=== PATIENT | female | born 1950 | race Caucasian/White ===

== ENCOUNTER 2023-01-17 15:48 | Inpatient (IN) | payer MEDICARE, OTHER ==
[~2023-01-17] VITALS: Ht 175.3 cm; Wt 66.7 kg
[2023-01-17] MEDS ORDERED: EYEL1MED TP (16:24)
[2023-01-17] MEDS ORDERED: MAGN400O6 PO (16:24)
[2023-01-17] MEDS ORDERED: ONDA4TAB11 SL (16:24)
[2023-01-17] MEDS ORDERED: CHOL400T32 PO (16:24)
[2023-01-17] MEDS ORDERED: ASPI81TA31 PO (16:24)
[2023-01-17] MEDS ORDERED: NALO4SPR NS (16:24)
[2023-01-17] MEDS ORDERED: ACET-2154 PO (16:24)
[2023-01-17] MEDS ORDERED: SENN1TAB59 PO (16:24)
[2023-01-17] MEDS ORDERED: L. A1TAB10 PO (16:24)
[2023-01-17] MEDS ORDERED: MORP15TA7 PO (16:24)
[2023-01-17 16:32] LABS: CARBON DIOXIDE 27 mmol/L (21-32); CHLORIDE 99 mmol/L (98-107); CREATININE 0.6 mg/dL (0.6-1.3); GLUCOSE 91 mg/dL (74-106); POTASSIUM 3.7 mmol/L (3.5-5.1); SODIUM SERUM 134 mmol/L (136-145); UREA NITROGEN, BLOOD 8 mg/dL (7-18)
[2023-01-17 16:46] LABS: ALANINE AMINOTRANSFERASE 17 U/L (14-59); ALBUMIN 3.7 g/dL (3.4-5.0); ALKALINE PHOSPHATASE 99 U/L (50-136); ASPARTATE AMINOTRANSFERASE 12 U/L (15-37); BILIRUBIN,DIRECT 0.1 mg/dL (0.0-0.2); BILIRUBIN,TOTAL 0.5 mg/dL (0.2-1.0); NT-PRO BNP 720 pg/mL (0-125); TOTAL PROTEIN, SERUM 6.8 g/dL (6.4-8.2)
[2023-01-17] MEDS ORDERED: HYDROCODONE/APAP 5-325MG TABLET PO PRN (21:00)
[2023-01-17] MEDS ORDERED: TEMAZEPAM 15 MG CAPSULE PO PRN (21:00)
[2023-01-17] MEDS ORDERED: hydrALAZINE HCL 25 MG TABLET PO PRN (21:00)
[2023-01-17] MEDS ORDERED: ONDANSETRON 4 MG/2 ML VIAL IV PRN (21:00)
[2023-01-17] MEDS ORDERED: MAGNESIUM HYDROXIDE 30 ML LIQUID UDC PO PRN (21:00)
[2023-01-17] MEDS ORDERED: IV 1/2NS 1000 ML 1,000 ML IV PRN (22:00)
[2023-01-17] MEDS ORDERED: LORAZEPAM 2 MG/1 ML VIAL IV PRN (22:15)
[2023-01-17] MEDS: DOCUSATE SODIUM 100 MG CAPSULE PO SCH (22:23)
[2023-01-17 23:08] VITALS: BP 137/62; TEMP 98.5; O2SAT 97
[2023-01-17] MEDS ORDERED: diphenhydrAMINE 25 MG CAP PO PRN (23:30)
[2023-01-18 04:50] VITALS: BP 131/52; TEMP 97.4; O2SAT 97
[2023-01-18] MEDS: PANTOPRAZOLE SODIUM 40 MG TABLET.DR PO SCH (06:28)
[2023-01-18 08:04] VITALS: BP 122/62; TEMP 98; O2SAT 98
[2023-01-18] MEDS: ASPIRIN EC 81 MG TABLET.DR PO SCH (08:39)
[2023-01-18] MEDS: CULTURELLE CAPSULE PO SCH (08:39)
[2023-01-18] MEDS: MORPHINE SULFATE SR 15 MG TABLET.SA PO PRN ×2 (08:43→17:12)
[2023-01-18] MEDS ORDERED: AMLODIPINE 5 MG TABLET PO SCH (09:00)
[2023-01-18 10:59] VITALS: BP 130/63; TEMP 98; O2SAT 98
[2023-01-18] MEDS ORDERED: DIPH-530 PO (11:49)
[2023-01-18] MEDS ORDERED: PROP15DR EACHEYE (11:49)
[2023-01-18] MEDS ORDERED: SENN8.6T19 PO (11:49)
[2023-01-18] MEDS ORDERED: LORA5SOL38 PO (11:49)
[2023-01-18] MEDS ORDERED: MAGN400C PO (11:49)
[2023-01-18] MEDS ORDERED: ONDA-104 PO (11:49)
[2023-01-18] MEDS ORDERED: MELO-105 PO (11:49)
[2023-01-18] MEDS ORDERED: FLUT16SP16 BNOSTRILS (11:49)
[2023-01-18] MEDS ORDERED: BISA10SU95 RC (11:49)
[2023-01-18] MEDS ORDERED: ASPI-495 PO (11:49)
[2023-01-18] MEDS ORDERED: UMEC1BLS IH (11:49)
[2023-01-18] MEDS: diphenhydrAMINE 25 MG/10 ML UDC PO PRN ×2 (14:20→23:01)
[2023-01-18 15:00] VITALS: BP 130/50; TEMP 97; O2SAT 98
[2023-01-18] MEDS ORDERED: METOCLOPRAMIDE HCL 5 MG TABLET PO PRN (16:15)
[2023-01-18] MEDS: LORATADINE 10 MG TABLET PO PRN (17:12)
[2023-01-18 20:10] VITALS: BP 127/56; TEMP 98.2; O2SAT 98
[2023-01-18] MEDS: DOCUSATE SODIUM 100 MG CAPSULE PO SCH ×2 (20:42→20:45)
[2023-01-19] MEDS: ACETAMINOPHEN 325 MG TABLET PO PRN ×2 (00:27→18:17)
[2023-01-19] MEDS: MORPHINE SULFATE SR 15 MG TABLET.SA PO PRN ×3 (02:48→20:22)
[2023-01-19 04:00] VITALS: BP 137/56; TEMP 98.8; O2SAT 96
[2023-01-19] MEDS: PANTOPRAZOLE SODIUM 40 MG TABLET.DR PO SCH (07:00)
[2023-01-19 07:18] LABS: BASOPHILS % (AUTO) 0.9 % (0.0-2.0); EOSINOPHILS # (AUTO) 0.2 K/uL (0.0-0.7); EOSINOPHILS % (AUTO) 3.9 % (0.0-7.0); HEMATOCRIT 33.3 % (31.2-41.9); HEMOGLOBIN 11.4 g/dL (10.9-14.3); LYMPHOCYTES # (AUTO) 1.1 K/uL (0.8-4.8); LYMPHOCYTES % (AUTO) 23.6 % (20.5-51.5); MEAN CORPUSCULAR HEMOGLOBIN 30.9 uug (24.7-32.8); MEAN CORPUSCULAR HGB CONC 34 g/dL (32.3-35.6); MEAN CORPUSCULAR VOLUME 90.4 fL (75.5-95.3); MONOCYTES # (AUTO) 0.5 K/uL (0.1-1.30); MONOCYTES % (AUTO) 10.4 % (0.0-11.0); NEUTROPHILS # (AUTO) 2.7 K/uL (1.8-8.9); NEUTROPHILS % (AUTO) 61.2 % (38.5-71.5); PLATELET COUNT (AUTO) 235 K/uL (179-408); RED BLOOD CELL COUNT(AUTO) 3.68 MIL/uL (3.63-4.92); RED CELL DISTRIBUTION WIDTH 18.1 % (12.3-17.7); WHITE BLOOD COUNT (AUTO) 4.5 K/uL (3.8-11.8)
[2023-01-19 07:28] LABS: DIFFERENTIAL COMMENT 1
[2023-01-19 08:00] LABS: ALBUMIN 2.9 g/dL (3.4-5.0); BILIRUBIN,TOTAL 0.3 mg/dL (0.2-1.0); CALCIUM 8.6 mg/dL (8.5-10.1); CREATININE 0.7 mg/dL (0.6-1.3); MAGNESIUM 2.3 mg/dL (1.8-2.4); PHOSPHOROUS 4.6 mg/dL (2.5-4.9); TOTAL PROTEIN, SERUM 5.8 g/dL (6.4-8.2)
[2023-01-19 08:01] LABS: POTASSIUM 4.1 mmol/L (3.5-5.1)
[2023-01-19] MEDS: CULTURELLE CAPSULE PO SCH (08:24)
[2023-01-19] MEDS: ASPIRIN EC 81 MG TABLET.DR PO SCH (08:25)
[2023-01-19] MEDS ORDERED: LOSARTAN POTASSIUM 50 MG TABLET PO SCH (09:00)
[2023-01-19] MEDS ORDERED: PATIENT MAY USE OWN MED- MD OK IH SCH (09:15)
[2023-01-19 11:04] VITALS: BP 121/44; TEMP 97.7; O2SAT 98
[2023-01-19] MEDS: MELOXICAM 7.5 MG TABLET PO SCH (11:08)
[2023-01-19] MEDS: diphenhydrAMINE 25 MG/10 ML UDC PO PRN ×2 (11:13→23:41)
[2023-01-19] MEDS: FLUTICASONE/VILANTEROL 1 EACH BLST.W.DEV INH SCH (11:18)
[2023-01-19] MEDS: CYANOCOBALAMIN 1,000 MCG TABLET PO SCH (13:42)
[2023-01-19 15:04] VITALS: BP 123/56; TEMP 98.2; O2SAT 98
[2023-01-19] MEDS: LORATADINE 10 MG TABLET PO PRN (16:13)
[2023-01-19 20:00] VITALS: BP 124/47; TEMP 97.9; O2SAT 98
[2023-01-19] MEDS: DOCUSATE SODIUM 100 MG CAPSULE PO SCH (20:23)
[2023-01-19] MEDS ORDERED: ATORVASTATIN 10 MG TABLET PO SCH (21:00)
[2023-01-19] MEDS ORDERED: diphenhydrAMINE 25 MG/10 ML UDC ONE (23:29)
[2023-01-20] MEDS: MORPHINE SULFATE SR 15 MG TABLET.SA PO PRN ×2 (05:10→13:11)
[2023-01-20 06:00] VITALS: BP 128/48; TEMP 98.1; O2SAT 97
[2023-01-20] MEDS: PANTOPRAZOLE SODIUM 40 MG TABLET.DR PO SCH (06:39)
[2023-01-20] MEDS: ASPIRIN EC 81 MG TABLET.DR PO SCH (08:30)
[2023-01-20] MEDS: CYANOCOBALAMIN 1,000 MCG TABLET PO SCH (08:30)
[2023-01-20] MEDS: CULTURELLE CAPSULE PO SCH (08:30)
[2023-01-20] MEDS: MELOXICAM 7.5 MG TABLET PO SCH (08:31)
[2023-01-20] MEDS: FLUTICASONE/VILANTEROL 1 EACH BLST.W.DEV INH SCH (08:31)
[2023-01-20 09:30] LABS: BASOPHILS % (AUTO) 0.6 % (0.0-2.0); EOSINOPHILS # (AUTO) 0.2 K/uL (0.0-0.7); EOSINOPHILS % (AUTO) 3.4 % (0.0-7.0); HEMATOCRIT 35.7 % (31.2-41.9); LYMPHOCYTES # (AUTO) 1.3 K/uL (0.8-4.8); LYMPHOCYTES % (AUTO) 24.9 % (20.5-51.5); MEAN CORPUSCULAR HEMOGLOBIN 30.5 uug (24.7-32.8); MEAN CORPUSCULAR HGB CONC 34 g/dL (32.3-35.6); MEAN CORPUSCULAR VOLUME 91.1 fL (75.5-95.3); MONOCYTES # (AUTO) 0.4 K/uL (0.1-1.30); MONOCYTES % (AUTO) 7.4 % (0.0-11.0); NEUTROPHILS # (AUTO) 3.2 K/uL (1.8-8.9); NEUTROPHILS % (AUTO) 63.7 % (38.5-71.5); PLATELET COUNT (AUTO) 267 K/uL (179-408); RED BLOOD CELL COUNT(AUTO) 3.92 MIL/uL (3.63-4.92); RED CELL DISTRIBUTION WIDTH 18.7 % (12.3-17.7)
[2023-01-20 09:35] LABS: DIFFERENTIAL COMMENT 1
[2023-01-20 09:53] LABS: ALBUMIN 3.4 g/dL (3.4-5.0); BILIRUBIN,TOTAL 0.2 mg/dL (0.2-1.0); CALCIUM 8.4 mg/dL (8.5-10.1); CREATININE 0.7 mg/dL (0.6-1.3); MAGNESIUM 2.2 mg/dL (1.8-2.4); PHOSPHOROUS 4.6 mg/dL (2.5-4.9); POTASSIUM 3.8 mmol/L (3.5-5.1); TOTAL PROTEIN, SERUM 6.5 g/dL (6.4-8.2)
[2023-01-20 11:39] VITALS: BP 128/45; TEMP 98.3; O2SAT 98
[2023-01-20] MEDS ORDERED: CYAN-51 PO (14:03)
[2023-01-20] MEDS ORDERED: MORP15TA60 PO (14:03)
[2023-01-20] MEDS ORDERED: ASPI-618 PO (14:03)
[2023-01-20] MEDS ORDERED: ACET325T53 PO (14:03)
[2023-01-20] MEDS ORDERED: ATOR10TA PO (14:03)
[2023-01-20] MEDS ORDERED: MELO-105 PO (14:03)
[2023-01-20] MEDS ORDERED: FLUT1BLS INH (14:03)
[2023-01-20] MEDS ORDERED: METO5TAB2 PO (14:03)
== END 2023-01-20 16:20 | DRG 917 ==
LOC: ER 15:52 → TELE3 20:59 → MEDSURG3 01-18 11:41
PROVIDERS: ADMIT Internal Medicine; ATTEND Internal Medicine
DX: T60.91XA Toxic effect of unspecified pesticide, accidental (unintentional), initial encounter (principal); I50.31 Acute diastolic (congestive) heart failure; J68.1 Pulmonary edema due to chemicals, gases, fumes and vapors; G82.20 Paraplegia, unspecified; R06.02 Shortness of breath; I11.0 Hypertensive heart disease with heart failure; S14.107S Unspecified injury at C7 level of cervical spinal cord, sequela; X58.XXXS Exposure to other specified factors, sequela; R60.0 Localized edema; G89.4 Chronic pain syndrome; H26.9 Unspecified cataract; Y92.099 Unspecified place in other non-institutional residence as the place of occurrence of the external cause; M24.576 Contracture, unspecified foot; E78.5 Hyperlipidemia, unspecified; M19.90 Unspecified osteoarthritis, unspecified site; F41.9 Anxiety disorder, unspecified; Z79.82 Long term (current) use of aspirin; Z79.899 Other long term (current) drug therapy; Z88.1 Allergy status to other antibiotic agents; Z88.2 Allergy status to sulfonamides; Z88.8 Allergy status to other drugs, medicaments and biological substances; S91.302A Unspecified open wound, left foot, initial encounter; X58.XXXA Exposure to other specified factors, initial encounter; Q66.12 Congenital talipes calcaneovarus, left foot; Q66.11 Congenital talipes calcaneovarus, right foot; E53.8 Deficiency of other specified B group vitamins; Z86.59 Personal history of other mental and behavioral disorders
CPT/HCPCS: 36415; 71045; 83735; 84100; 84443; 84484; 85025; 93005; 93307; A4663; G0378; J2060; Q0163